=== PATIENT | female | born 1995 | race Caucasian/White ===

== ENCOUNTER 2022-03-05 09:44 | Emergency (ER) | payer OTHER ==
--- NOTE | 2022-03-05 09:49 | ED GI ---
General Chief Complaint: Abdominal/GI Problems Stated Complaint: BLOODY DIARRHEA/NAUSEA/VOMITING History of Present Illness Date Seen by Provider: Mar 05, 2022 Time Seen by Provider: 09:49 Initial Comments 26-year-old female with PMH of pseudocholinesterase deficiency, is here with complaints of diarrhea for the past 5 days. Patient started having blood streaks in her diarrhea starting yesterday evening. Patient has associated intermittent nausea and vomiting. Patient had a gracie melt yesterday for di nner. Patient has been able to eat and drink without any issues. Patient has been camping on and off over the past few weeks and been swimming in [place] and might have swallowed some of the water in the [place]. Denies fever, abdominal pain, chest pain, palpitations, joint pain, rash. No known sick contacts. Allergies and Home Medications Allergies Coded Allergies: cefaclor (Verified Allergy, Unknown, 03/05/22) Uncoded Allergies: PSEUDOCHOLINESTERASE DEFICIENCY (Allergy, Unknown, 03/05/22) Patient Home Medication List Home Medication List Reviewed: Yes Review of Systems Review of Systems Constitutional: no symptoms reported EENTM: No Symptoms Reported Respiratory: No Symptoms Reported Cardiovascular: No Symptoms Reported Gastrointestinal: Abdominal Pain, Blood Streaked Stools, Diarrhea, Nausea, Vomiting Genitourinary: No Symptoms Reported Musculoskeletal: no symptoms reported Skin: no symptoms reported Psychiatric/Neurological: No Symptoms Reported Endocrine: No Symptoms Reported Hematologic/Lymphatic: No Symptoms Reported Physical Exam Vital Signs Vital Signs - First Documented 03/05/22 09:51 Temp 36.3 Pulse 85 Resp 18 B/P (MAP) 144/101 (115) Pulse Ox 100 O2 Delivery Room Air Capillary Refill : Height/Weight/BMI Height: '" Weight: lbs. oz. kg; BMI Method: General Appearance: WD/WN HEENT: PERRL/EOMI Neck: non-tender, full range of motion, supple Respiratory: chest non-tender, lungs clear, normal breath sounds Cardiovascular: normal peripheral pulses, regular rate, rhythm Gastrointestinal: normal bowel sounds, non tender, soft, no organomegaly Extremities: normal range of motion Back: normal inspection, no vertebral tenderness Neurologic/Psychiatric: alert, normal mood/affect, oriented x 3 Skin: normal color Focused Exam Lactate Level 03/05/22 10:25: Lactic Acid Level 0.83 Lactic Acid Level Laboratory Tests Test 8/6/22 10:25 Lactic Acid Level 0.83 MMOL/L (0.50-2.00) Progress/Results/Core Measures Results/Orders Lab Results Laboratory Tests Test 03/05/22 10:25 03/05/22 10:58 03/05/22 11:22 Range/Units White Blood Count 9.8 4.3-11.0 10^3/uL Red Blood Count 4.62 3.80-5.11 10^6/uL Hemoglobin 14.6 11.5-16.0 g/dL Hematocrit 42 35-52 % Mean Corpuscular Volume 91 80-99 fL Mean Corpuscular Hemoglobin 32 25-34 pg Mean Corpuscular Hemoglobin Concent 35 32-36 g/dL Red Cell Distribution Width 12.2 10.0-14.5 % Platelet Count 301 130-400 10^3/uL Mean Platelet Volume 9.2 9.0-12.2 fL Immature Granulocyte % (Auto) 0 % Neutrophils (%) (Auto) 74 42-75 % Lymphocytes (%) (Auto) 16 12-44 % Monocytes (%) (Auto) 9 0-12 % Eosinophils (%) (Auto) 1 0-10 % Basophils (%) (Auto) 0 0-10 % Neutrophils # (Auto) 7.2 1.8-7.8 10^3/uL Lymphocytes # (Auto) 1.6 1.0-4.0 10^3/uL Monocytes # (Auto) 0.9 0.0-1.0 10^3/uL Eosinophils # (Auto) 0.1 0.0-0.3 10^3/uL Basophils # (Auto) 0.0 0.0-0.1 10^3/uL Immature Granulocyte # (Auto) 0.0 0.0-0.1 10^3/uL Sodium Level 133 L 135-145 MMOL/L Potassium Level 4.3 3.6-5.0 MMOL/L Chloride Level 98 98-107 MMOL/L Carbon Dioxide Level 24 21-32 MMOL/L Anion Gap 11 5-14 MMOL/L Blood Urea Nitrogen 9 7-18 MG/DL Creatinine 0.71 0.60-1.30 MG/DL Estimat Glomerular Filtration Rate 121 BUN/Creatinine Ratio 13 Glucose Level 98 70-105 MG/DL Lactic Acid Level 0.83 0.50-2.00 MMOL/L Calcium Level 9.8 8.5-10.1 MG/DL Corrected Calcium 8.5-10.1 MG/DL Magnesium Level 1.9 1.6-2.4 MG/DL Total Bilirubin 0.6 0.1-1.0 MG/DL Aspartate Amino Transf (AST/SGOT) 26 5-34 U/L Alanine Aminotransferase (ALT/SGPT) 21 0-55 U/L Alkaline Phosphatase 74 40-136 U/L Total Protein 7.8 6.4-8.2 GM/DL Albumin 5.0 H 3.2-4.5 GM/DL Lipase 37 8-78 U/L Serum Test, Qualitative NEGATIVE NEGATIVE Stool Occult Blood Immunoassay NEGATIVE NEGATIVE Influenza Type A (RT-PCR) Not Detected Not Detecte Influenza Type B (RT-PCR) Not Detected Not Detecte SARS-CoV-2 RNA (RT-PCR) Not Detected Not Detecte My Orders Orders - JAY DOWNEY MD Cbc With Automated Diff (03/05/22 10:13) Comprehensive Metabolic Panel (03/05/22 10:13) Hepatitis Panel Acute (03/05/22 10:13) Lactic Acid Analyzer (03/05/22 10:13) Lipase (03/05/22 10:13) Magnesium (03/05/22 10:13) Ua Culture If Indicated (03/05/22 10:13) Stool Culture (03/05/22 10:13) Fecal Wbc (03/05/22 10:13) Rotavirus Antigen (03/05/22 10:13) Ed Iv/Invasive Line Start (03/05/22 10:13) Ns Iv 1000 Ml (Sodium Chloride 0.9%) (03/05/22 10:15) Ct Abdomen/Pelvis W (03/05/22 10:16) Chest 1 View Ap/Pa Only (03/05/22 10:16) Pantoprazole Injection (Protonix Injecti (03/05/22 10:30) Occult Blood Stool (03/05/22 10:20) Parasite Complete Exam Stool (03/05/22 10:24) Parasite Scrn Stool Giard Cryp (03/05/22 10:25) Hcg,Qualitative Serum (03/05/22 11:09) Covid 19 Inhouse Test (03/05/22 11:14) Influenza A And B By Pcr (03/05/22 11:14) Iohexol Injection (Omnipaque 350 Mg/Ml 1 (03/05/22 11:30) Received Contrast (Hold Metformin- Contr (03/05/22 11:30) Sodium Chloride Flush (Catheter Flush Sy (03/05/22 11:30) Ns (Ivpb) (Sodium Chloride 0.9% Ivpb Bag (03/05/22 11:30) Medications Given in ED Current Medications Medications Dose Ordered Sig/Emily Route Start Time Stop Time Status Last Admin Dose Admin Iohexol 100 ml ONCE ONCE IV 03/05/22 11:30 03/05/22 11:31 DC 03/05/22 11:30 80 ML Pantoprazole 40 mg ONCE ONCE IV 03/05/22 10:30 03/05/22 10:31 DC 03/05/22 10:25 40 MG Sodium Chloride 10 ml NEEDED PRN IV 03/05/22 11:30 03/05/22 11:30 10 ML Sodium Chloride 100 ml ONCE ONCE IV 03/05/22 11:30 03/05/22 11:31 DC 03/05/22 11:30 100 ML Vital Signs/I&O 03/05/22 09:51 Temp 36.3 Pulse 85 Resp 18 B/P (MAP) 144/101 (115) Pulse Ox 100 O2 Delivery Room Air Progress Progress Note : Progress Note 1. Gastroenteritis/ Ovarian cyst - CT ABD & PELVIS - CXR: - CBC/ CMP: normal - UA/ UDS: - Stool culture/ studies/ giardia, etc - FOB: - NS IVF bolus - Protonix iv -Prescription for Zofran given - Soft bland food, adequate hydration advised -Advised to follow-up or call [facility] office on Monday. Patient just had a [facility] appointment last week. -Follow-up with PCP -Precautionary plan Diagnostic Imaging Diagonstic Imaging: Xray, CT Plain Films/CT/US/NM/MRI: chest, abdomen Comments [facility]. [place], [place] NAME: GWEN BURKS [facility] REC#: [id number] PT STATUS: REG ER : 1995 PHYSICIAN: JAY DOWNEY MD ADMIT DATE: 03/05/22/ER FS Draft Date of Exam:03/05/22 CT ABDOMEN/PELVIS W PROCEDURE: CT abdomen and pelvis with contrast. TECHNIQUE: Multiple contiguous axial images were obtained through the abdomen and pelvis after administration of intravenous contrast. Auto Exposure Controls were utilized during the CT exam to meet ALARA standards for radiation dose reduction. All CT scans use one or more of the following dose optimizing techniques: automated exposure control, MA and/or KvP adjustment based on patient size and exam type or iterative reconstruction. INDICATION: Bloody diarrhea. FINDINGS: The heart size is normal. The lung bases are clear. The liver is normal in size and without focal lesions. Gallbladder is unremarkable. There is no biliary ductal dilatation. The spleen is normal. The pancreas, adrenal glands and kidneys are unremarkable. The aorta is nonaneurysmal. The bowel gas pattern is nonspecific. There is no free air. There is no ascites. There are no focal inflammatory changes. There are bilateral ovarian cysts. There is free pelvic fluid. No pelvic mass or adenopathy. No obvious colonic mucosal thickening is appreciated. IMPRESSION: Bilateral ovarian cysts with some moderate free pelvic fluid, possibly reflecting recently ruptured ovarian cyst. Recommend clinical correlation and, if warranted, follow up with pelvic ultrasound. Colon is grossly normal in appearance and without evidence of mucosal thickening to suggest colitis. Dictated on workstation # [id number] Dict: 03/05/22 1155 Trans: 03/05/22 1205 [facility] [id number] Interpreted by: SHAGGY CHILDS MD Electronically signed by: Departure Impression Primary Impression: Gastroenteritis and colitis, viral Additional Impression: Ovarian cyst Qualified Codes: N83.201 - Unspecified ovarian cyst, right side; N83.202 - Unspecified ovarian cyst, left side Disposition: HOME, SELF-CARE Condition: Improved Departure-Patient Inst. Patient Instructions: Ovarian Cysts, Viral Gastroenteritis, Adult (DC), Dehydration, Adult ED Add. Discharge Instructions: -Prescription for Zofran -Call [facility] office on Monday. -Follow-up with PCP - Soft bland food, adequate hydration advised - Return to ER if worsens All discharge instructions reviewed with patient and/or family. Voiced understanding. Scripts Ondansetron (Ondansetron Odt) 4 Mg Tab.rapdis 4 MG PO TID for Nausea/Vomiting for 3 Days, #10 TAB Prov: JAY DOWNEY MD 03/05/22 Work/School Note: Work Release Form Date Seen in the Emergency Department: Mar 05, 2022 Return to Work: Mar 09, 2022 JAY DOWNEY MD Mar 05, 2022 09:49
[2022-03-05] MEDS ORDERED: NS IV 1000 ML 1,000 ML IV SCH (10:15)
[2022-03-05] MEDS ORDERED: PANTOPRAZOLE 40 MG (PROTONIX) VIAL IV ONE (10:30)
[2022-03-05 10:31] LABS: BASOPHILS % (AUTO) 0 % (0-10); EOSINOPHILS # (AUTO) 0.1 10^3/uL (0.0-0.3); EOSINOPHILS % (AUTO) 1 % (0-10); HEMATOCRIT 42 % (35-52); HEMOGLOBIN 14.6 g/dL (11.5-16.0); LYMPHOCYTES # (AUTO) 1.6 10^3/uL (1.0-4.0); LYMPHOCYTES % (AUTO) 16 % (12-44); MEAN CORPUSCULAR HEMOGLOBIN 32 pg (25-34); MEAN CORPUSCULAR HGB CONC 35 g/dL (32-36); MEAN CORPUSCULAR VOLUME 91 fL (80-99); MEAN PLATELET VOLUME 9.2 fL (9.0-12.2); MONOCYTES # (AUTO) 0.9 10^3/uL (0.0-1.0); MONOCYTES % (AUTO) 9 % (0-12); NEUTROPHILS # (AUTO) 7.2 10^3/uL (1.8-7.8); NEUTROPHILS % (AUTO) 74 % (42-75); PLATELET COUNT 301 10^3/uL (130-400); WHITE BLOOD COUNT 9.8 10^3/uL (4.3-11.0)
[2022-03-05 10:51] LABS: ALANINE AMINOTRANSFERASE 21 U/L (0-55); ALKALINE PHOSPHATASE 74 U/L (40-136); BILIRUBIN,TOTAL 0.6 MG/DL (0.1-1.0); BUN/CREATININE RATIO 13; CALCIUM 9.8 MG/DL (8.5-10.1); CARBON DIOXIDE 24 MMOL/L (21-32); CHLORIDE 98 MMOL/L (98-107); CREATININE SERUM 0.71 MG/DL (0.60-1.30); GFR ESTIMATED 121; GLUCOSE 98 MG/DL (70-105); LIPASE 37 U/L (8-78); MAGNESIUM 1.9 MG/DL (1.6-2.4); POTASSIUM 4.3 MMOL/L (3.6-5.0); SODIUM 133 MMOL/L (135-145); TOTAL PROTEIN 7.8 GM/DL (6.4-8.2)
[2022-03-05] MEDS ORDERED: NS 100 ML (IVPB) BAG IV ONE (11:30)
[2022-03-05] MEDS ORDERED: HOLD METFORMIN - RECEIVED CONTRAST 20 ML VIAL IV SCH (11:30)
[2022-03-05] MEDS ORDERED: IOHEXOL 350 MG/ML 100 ML (OMNIPAQUE 350) VIAL IV ONE (11:30)
[2022-03-05] MEDS ORDERED: CATHETER FLUSH 10 ML SYR IV PRN (11:30)
--- NOTE | 2022-03-05 11:49 | Diagnostic Imaging Report ---
INDICATION: Bloody diarrhea. FINDINGS: The heart size, mediastinal configuration, and pulmonary vascularity are within normal limits. There is no pleural effusion, pneumothorax, or pneumonia. The osseous structures are unremarkable. IMPRESSION: No acute cardiopulmonary abnormality. Dictated by: Dictated on workstation # [id number]
--- NOTE | 2022-03-05 12:06 | Diagnostic Imaging Report ---
PROCEDURE: CT abdomen and pelvis with contrast. TECHNIQUE: Multiple contiguous axial images were obtained through the abdomen and pelvis after administration of intravenous contrast. Auto Exposure Controls were utilized during the CT exam to meet ALARA standards for radiation dose reduction. All CT scans use one or more of the following dose optimizing techniques: automated exposure control, MA and/or KvP adjustment based on patient size and exam type or iterative reconstruction. INDICATION: Bloody diarrhea. FINDINGS: The heart size is normal. The lung bases are clear. The liver is normal in size and without focal lesions. Gallbladder is unremarkable. There is no biliary ductal dilatation. The spleen is normal. The pancreas, adrenal glands and kidneys are unremarkable. The aorta is nonaneurysmal. The bowel gas pattern is nonspecific. There is no free air. There is no ascites. There are no focal inflammatory changes. There are bilateral ovarian cysts. There is free pelvic fluid. No pelvic mass or adenopathy. No obvious colonic mucosal thickening is appreciated. IMPRESSION: Bilateral ovarian cysts with some moderate free pelvic fluid, possibly reflecting recently ruptured ovarian cyst. Recommend clinical correlation and, if warranted, follow up with pelvic ultrasound. Colon is grossly normal in appearance and without evidence of mucosal thickening to suggest colitis. Dictated by: Dictated on workstation # [id number]
[2022-03-05] MEDS ORDERED: ONDA4TAB11 PO (12:20)
[2022-03-05 12:22] VITALS: BP 147/53
[2022-03-07 14:20] LABS: HEPATITIS C ANTIBODY C Non-Reactive (Non-Reactive)
== END 2022-03-05 12:23 | disposition home or self-care (01) ==
LOC: EDUNIT# 09:44 → ER FS 09:48
DX: A08.4 Viral intestinal infection, unspecified (principal); N83.209 Unspecified ovarian cyst, unspecified side; Z20.822 Contact with and (suspected) exposure to COVID-19; Z28.310 Unvaccinated for COVID-19
CPT/HCPCS: 36415; 71045; 74177; 80053; 80074; 82274; 83605; 83690; 83735; 84703; 85025; 87015; 87045; 87046; 87177; 87328; 87329; 87425; 87636; 87899; 89055; Q9967

== ENCOUNTER 2023-04-13 20:28 | Emergency (ER) | payer SELFPAY ==
[~2023-04-13] VITALS: Ht 157 cm; Wt 65.7 kg
[~2023-04-13 20:28] MED LIST: ONDA4TAB11 PO
[2023-04-13] MEDS ORDERED: ANTACID SUSPENSION 30 ML UDC PO ONE (21:00)
[2023-04-13] MEDS ORDERED: ONDANSETRON INJECTION 4 MG/2 ML (SDV) IVP ONE (21:00)
[2023-04-13] MEDS ORDERED: LIDOCAINE 2% VISCOUS 15 ML UDC PO ONE (21:00)
[2023-04-13 21:11] LABS: BASOPHILS # (AUTO) 0.1 10^3/uL (0.0-0.1); BASOPHILS % (AUTO) 1 % (0-10); EOSINOPHILS # (AUTO) 0.2 10^3/uL (0.0-0.3); EOSINOPHILS % (AUTO) 2 % (0-10); HEMATOCRIT 39 % (35-52); HEMOGLOBIN 13.5 g/dL (11.5-16.0); LYMPHOCYTES # (AUTO) 3.1 10^3/uL (1.0-4.0); LYMPHOCYTES % (AUTO) 30 % (12-44); MEAN CORPUSCULAR HEMOGLOBIN 31 pg (25-34); MEAN CORPUSCULAR HGB CONC 34 g/dL (32-36); MEAN CORPUSCULAR VOLUME 90 fL (80-99); MEAN PLATELET VOLUME 9.1 fL (9.0-12.2); MONOCYTES % (AUTO) 9 % (0-12); NEUTROPHILS # (AUTO) 5.9 10^3/uL (1.8-7.8); NEUTROPHILS % (AUTO) 58 % (42-75); PLATELET COUNT 312 10^3/uL (130-400); WHITE BLOOD COUNT 10.2 10^3/uL (4.3-11.0)
--- NOTE | 2023-04-13 21:22 | Diagnostic Imaging Report ---
INDICATION: Chest pain. COMPARISON: 03/05/2022. FINDINGS: The lungs appear clear without focal airspace opacities or consolidation. There are no findings of an effusion. There is no evidence of a pneumothorax. Heart size and mediastinal contours appear appropriate. Pulmonary vascularity appears within normal limits. There is no acute or suspicious osseous abnormality demonstrated. IMPRESSION: No radiographic evidence of an acute cardiopulmonary process. Dictated by: Dictated on workstation # [id number]
[2023-04-13 21:31] LABS: INR 0.9 (0.8-1.4); PROTHROMBIN TIME PATIENT 12.6 SEC (12.2-14.7)
[2023-04-13 21:33] LABS: BUN/CREATININE RATIO 11; CARBON DIOXIDE 23 MMOL/L (21-32); CHLORIDE 100 MMOL/L (98-107); CREATININE SERUM 0.73 MG/DL (0.60-1.30); GFR ESTIMATED 116; GLUCOSE 110 MG/DL (70-105); POTASSIUM 3.8 MMOL/L (3.6-5.0); SODIUM 135 MMOL/L (135-145)
[2023-04-13 21:34] LABS: ALANINE AMINOTRANSFERASE 18 U/L (0-55); ALBUMIN 4.6 GM/DL (3.2-4.5); ALKALINE PHOSPHATASE 66 U/L (40-136); BILIRUBIN,TOTAL 0.3 MG/DL (0.1-1.0); CALCIUM 9.4 MG/DL (8.5-10.1); LIPASE 50 U/L (8-78); MAGNESIUM 2.2 MG/DL (1.6-2.4); TOTAL PROTEIN 7.4 GM/DL (6.4-8.2)
--- NOTE | 2023-04-13 21:38 | ED Chest Pain ---
General Chief Complaint: Chest Pain Stated Complaint: CHEST PAIN,SOB FOR A WEEK Nursing Triage Note: Patient to ER with s/o via POV c/o SOB, chest pain x1 wk. Source: patient Exam Limitations: no limitations History of Present Illness Date Seen by Provider: Apr 13, 2023 Time Seen by Provider: 20:31 Initial Comments This 27-year-old young lady presents to the emergency room by private vehicle with complaints of chest pain, palpitations, and shortness of breath intermittently over the past week. She first noticed the symptoms on April 07. At first she believed her symptoms to be anxiety related as they were preparing to take a trip. They did go on the trip to [place] and att ended a concert. Symptoms persisted throughout the trip and after returning home. Exertion seems to worsen the symptoms but she otherwise has not noticed a pattern of exacerbation or alleviation. She denies any cough, fever, chills, nausea, vomiting, or diarrhea. The pain is in the lower substernal area and is rated as 3/10 at this time. She denies with an LMP of 1 month ago. She denies any prior episodes of similar symptoms. She does not smoke but uses salt based nicotine vape. She also drinks 4-6 beers every night. She had about 1/2 can of beer this evening before coming to the ER. Allergies and Home Medications Allergies Coded Allergies: cefaclor (Verified Allergy, Unknown, 03/05/22) Uncoded Allergies: PSEUDOCHOLINESTERASE DEFICIENCY (Allergy, Unknown, 03/05/22) Patient Home Medication List Home Medication List Reviewed: Yes Ondansetron (Ondansetron Odt) 4 Mg Tab.rapdis, 4 MG PO TID Prescribed by: JAY DOWNEY MD on 03/05/22 1220 Review of Systems Review of Systems Constitutional: no symptoms reported EENTM: No Symptoms Reported Respiratory: See HPI Cardiovascular: See HPI Gastrointestinal: No Symptoms Reported Genitourinary: No Symptoms Reported Musculoskeletal: no symptoms reported Skin: no symptoms reported Psychiatric/Neurological: See HPI Endocrine: No Symptoms Reported Hematologic/Lymphatic: No Symptoms Reported Past Awrynxy-Lczauc-Qecifp Hx Patient Social History Tobacco Use?: No Use of E-Cig and/or Vaping dev: Yes E-Cig or Vaping type used: Other (Salt based nicotine) Additional E-Cig or Vaping: Vape type used "josselin salt" Substance use?: No Alcohol Use?: Yes Alcohol type: Beer Alcohol Frequency: Daily (4-6 beers each night) Immunizations Up To Date First/Initial COVID19 Vaccinat: Not currently vaccinated Second COVID19 Vaccination Erick: Not currently vaccinated Third COVID19 Vaccination Date: Not currently vaccinated Past Medical History Surgery/Hospitalization HX: pseudocholinesterase; D&C Last Menstrual Period: Mar 13, 2023 Physical Exam Vital Signs Vital Signs - First Documented 04/13/23 20:38 Temp 36.8 Pulse 92 Resp 16 B/P (MAP) 164/99 (120) Pulse Ox 100 O2 Delivery Room Air Capillary Refill : Less Than 3 Seconds Height, Weight, BMI Height: '" Weight: lbs. oz. kg; 26.00 BMI Method: General Appearance: WD/WN, Anxious (Mildly) HEENT: PERRL/EOMI, Normal ENT Inspection Neck: Normal Inspection; No JVD Respiratory: Chest Non Tender, Lungs Clear, Normal Breath Sounds, No Accessory Muscle Use, No Respiratory Distress Cardiovascular: Regular Rate, Rhythm, No Edema, No Murmur Gastrointestinal: Normal Bowel Sounds, Soft; No Distended; Tenderness (Palpation of the epigastrium causes discomfort in the lower chest) Extremity: Normal Inspection, Non Tender, No Calf Tenderness, No Pedal Edema Neurologic/Psychiatric: Alert, Oriented x3, No Motor/Sensory Deficits, parts counter associate II- XII Norm as Tested, Other (Mildly anxious) Skin: Normal Color, Warm/Dry Progress/Results/Core Measures Results/Orders Lab Results Laboratory Tests Test 04/13/23 20:37 04/13/23 20:52 Range/Units White Blood Count 10.2 4.3-11.0 10^3/uL Red Blood Count 4.39 3.80-5.11 10^6/uL Hemoglobin 13.5 11.5-16.0 g/dL Hematocrit 39 35-52 % Mean Corpuscular Volume 90 80-99 fL Mean Corpuscular Hemoglobin 31 25-34 pg Mean Corpuscular Hemoglobin Concent 34 32-36 g/dL Red Cell Distribution Width 12.2 10.0-14.5 % Platelet Count 312 130-400 10^3/uL Mean Platelet Volume 9.1 9.0-12.2 fL Immature Granulocyte % (Auto) 0 % Neutrophils (%) (Auto) 58 42-75 % Lymphocytes (%) (Auto) 30 12-44 % Monocytes (%) (Auto) 9 0-12 % Eosinophils (%) (Auto) 2 0-10 % Basophils (%) (Auto) 1 0-10 % Neutrophils # (Auto) 5.9 1.8-7.8 10^3/uL Lymphocytes # (Auto) 3.1 1.0-4.0 10^3/uL Monocytes # (Auto) 1.0 0.0-1.0 10^3/uL Eosinophils # (Auto) 0.2 0.0-0.3 10^3/uL Basophils # (Auto) 0.1 0.0-0.1 10^3/uL Immature Granulocyte # (Auto) 0.0 0.0-0.1 10^3/uL Prothrombin Time 12.6 12.2-14.7 SEC INR Comment 0.9 0.8-1.4 Activated Partial Thromboplast Time 28 24-35 SEC Sodium Level 135 135-145 MMOL/L Potassium Level 3.8 3.6-5.0 MMOL/L Chloride Level 100 98-107 MMOL/L Carbon Dioxide Level 23 21-32 MMOL/L Anion Gap 12 5-14 MMOL/L Blood Urea Nitrogen 8 7-18 MG/DL Creatinine 0.73 0.60-1.30 MG/DL Estimat Glomerular Filtration Rate 116 BUN/Creatinine Ratio 11 Glucose Level 110 H 70-105 MG/DL Calcium Level 9.4 8.5-10.1 MG/DL Corrected Calcium 8.5-10.1 MG/DL Magnesium Level 2.2 1.6-2.4 MG/DL Total Bilirubin 0.3 0.1-1.0 MG/DL Aspartate Amino Transf (AST/SGOT) 18 5-34 U/L Alanine Aminotransferase (ALT/SGPT) 18 0-55 U/L Alkaline Phosphatase 66 40-136 U/L Myoglobin < 21.0 <58.0 NG/ML Troponin I < 0.30 <0.30 NG/ML Total Protein 7.4 6.4-8.2 GM/DL Albumin 4.6 H 3.2-4.5 GM/DL Lipase 50 8-78 U/L Serum Test, Qualitative NEGATIVE NEGATIVE Influenza Type A (RT-PCR) Not Detected Not Detecte Influenza Type B (RT-PCR) Not Detected Not Detecte SARS-CoV-2 RNA (RT-PCR) Not Detected Not Detecte My Orders Orders - JER STEPHEN MD Covid 19 Inhouse Test (04/13/23 20:31) Influenza A And B By Pcr (04/13/23 20:31) Cbc With Automated Diff (04/13/23 21:00) Magnesium (04/13/23 21:00) Chest 1 View Ap/Pa Only (04/13/23 21:00) Ekg Tracing (04/13/23 21:00) Comprehensive Metabolic Panel (04/13/23 21:00) Myoglobin Serum (04/13/23 21:00) Protime With Inr (04/13/23:00) Partial Thromboplastin Time (04/13/23:00) O2 (04/13/23 21:00) Monitor-Rhythm Ecg Trace Only (04/13/23 21:00) Ed Iv/Invasive Line Start (04/13/23 21:00) Troponin I Fs (04/13/23 21:00) Hcg,Qualitative Serum (04/13/23 21:00) Lipase (04/13/23 21:00) Ondansetron Injection (Ondansetron Inj (04/13/23 21:00) Lidocaine 2% Viscous 15 Ml (Xylocaine Vi (04/13/23 21:00) Antacid Suspension (Antacid Suspension (04/13/23 21:00) Pantoprazole Tablet (Pantoprazole Tablet (04/13/23 21:45) Medications Given in ED Current Medications Medications Dose Ordered Sig/Emily Route Start Time Stop Time Status Last Admin Dose Admin Al Hydrox/Mg Hydrox/Simethicone 30 ml ONCE ONCE PO 04/13/23 21:00 04/13/23 21:02 DC 04/13/23 21:14 30 ML Lidocaine HCl 15 ml ONCE ONCE PO 04/13/23 21:00 04/13/23 21:02 DC 04/13/23 21:14 15 ML Ondansetron HCl 4 mg ONCE ONCE IVP 04/13/23 21:00 04/13/23 21:02 DC 04/13/23 21:05 4 MG Pantoprazole Sodium 40 mg ONCE ONCE PO 04/13/23 21:45 04/13/23 21:46 DC 04/13/23 22:02 40 MG Vital Signs/I&O 04/13/23 04/13/23 20:38 22:07 Temp 36.8 Pulse 92 74 Resp 16 17 B/P (MAP) 164/99 (120) 120/91 Pulse Ox 100 98 O2 Delivery Room Air Room Air Blood Pressure Mean: 120 Progress Progress Note #1: Time: 21:39 Progress Note Patient was interviewed and examined shortly after arrival during the triage process. Chest pain work-up was pursued. EKG was unremarkable by my interpretation as below. Chest x-ray was viewed by me and unremarkable by my interpretation with no evidence of pneumothorax, infiltrate, or other acute abnormalities. Radiologist's report was also reviewed as below. Labs were obtained, reviewed, and interpreted by me in their entirety. All labs were clinically unremarkable including CBC, CMP, troponin, magnesium, lipase, serum , coag panel and myoglobin. Influenza and COVID-19 swabs were negative. Patient was treated with Zofran and GI cocktail which resolved her 3/10 chest pain. Vital signs returned to normal with heart rate of 83 and blood pressure of 125/68. Chest pain appears to be, at least in part, related to esophagitis as it was relieved by GI cocktail. Treatment and prevention will be reviewed with patient including alcohol consumption reduction. Progress Note #2: Progress Note Discharge instructions were reviewed at length. Patient was discharged in improved condition. Protonix was given prior to discharge. Initial ECG Impression Date: Apr 13, 2023 Initial ECG Impression Time: 20:47 Initial ECG Rate: 88 Initial ECG Rhythm: Normal Sinus Initial ECG Intervals: Normal Initial ECG Impression: Normal Comment Normal sinus rhythm with no ST elevation or depression. No abnormal intervals or axis deviation. Normal EKG. Diagnostic Imaging Diagonstic Imaging: Xray Plain Films/CT/US/NM/MRI: chest Comments Chest x-ray viewed by me and report reviewed. NAME: GWEN BURKS MED REC#: [id number] PT STATUS: REG ER : 1995 PHYSICIAN: JER STEPHEN MD ADMIT DATE: 04/13/23/ER FS Signed Date of Exam:04/13/23 CHEST 1 VIEW AP/PA ONLY INDICATION: Chest pain. COMPARISON: 03/05/2022. FINDINGS: The lungs appear clear without focal airspace opacities or consolidation. There are no findings of an effusion. There is no evidence of a pneumothorax. Heart size and mediastinal contours appear appropriate. Pulmonary vascularity appears within normal limits. There is no acute or suspicious osseous abnormality demonstrated. IMPRESSION: No radiographic evidence of an acute cardiopulmonary process. Dictated by: Dictated on workstation # [id number] Dict: 04/13/232119 Trans: 04/13/232120 [facility] [id number] Interpreted by: AMINA PEREZ MD Electronically signed by: AMINA PEREZ MD 04/13/232120 Departure Impression Primary Impression: Atypical chest pain Additional Impressions: Alcohol abuse, daily use Palpitations Disposition: HOME, SELF-CARE Condition: Improved Departure-Patient Inst. Decision time for Depature: 21:44 Referrals: NO,LOCAL PHYSICIAN (PCP/Family) Primary Care Physician Patient Instructions: Chest Pain That Is Not Caused by the Heart (DC), Acid Reflux and GERD in Adults (DC) Add. Discharge Instructions: Take an antacid medication daily such as omeprazole 20 mg. You may wish to start with twice daily dosing for the first several days. Continue with antiacid medication for at least 2 weeks and for several days after symptoms resolve. For acute treatment of pain you may use Tums or a generic equivalent per package instructions. You may also use Tylenol (acetaminophen) up to 1000 mg every 6 hours as needed. Avoid use of NSAID medications such as ibuprofen or naproxen products. Taper off of your alcohol consumption gradually. If you are unable to taper off of alcohol, please seek assistance from your physician and/or a substance abuse treatment program of some kind. Avoid the following: Eating large meals, eating close to bedtime, tight fitting clothes around the abdomen, caffeine, chocolate, carbonation, citrus fruits and juices, tomato products, alcohol, tobacco, mints, fatty/greasy foods, spicy foods, NSAID medications such as ibuprofen or naproxen, and anything else you know irritates your stomach. Elevating your head and shoulders at night when you sleep will also help reduce acid reflux. Expect gradual improvement of your pain over the next 1 to 2 weeks if you follow these instructions. Please follow-up with your primary care provider within 1 to 2 weeks for a checkup. Return to the emergency room if you have worsening symptoms despite following these instructions. All discharge instructions reviewed with patient and/or family. Voiced understanding. JER STEPHEN MD Apr 13, 2023 21:37
[2023-04-13] MEDS ORDERED: PANTOPRAZOLE 40 MG TABLET PO ONE (21:45)
[2023-04-13 22:07] VITALS: BP 120/91
== END 2023-04-13 22:07 | disposition home or self-care (01) ==
LOC: EDUNIT# 20:28 → ER FS 20:30
DX: R07.89 Other chest pain (principal); F10.10 Alcohol abuse, uncomplicated; R00.2 Palpitations; F17.290 Nicotine dependence, other tobacco product, uncomplicated; Z28.310 Unvaccinated for COVID-19; Z20.822 Contact with and (suspected) exposure to COVID-19
CPT/HCPCS: 36415; 71045; 80053; 83690; 83735; 83874; 84484; 84703; 85025; 85610; 85730; 87636; 93005; 93041